=== PATIENT | male | born 1990 | race Caucasian/White ===

== ENCOUNTER 2018-07-03 09:10 | Outpatient (CLI) | payer OTHER ==
--- NOTE | 2018-07-03 09:25 | RAD ---
XR Lumbar Spine 2 Or 3 View History:Back pain Comparison: None Findings: The vertebral bodies are normal in height disc spaces alter relatively well-preserved. Dege nerative osteophytic changes are centered more at the thoracolumbar spine level. Pedicles are intact. No spondylolisthesis. Impression: Minimal arthritic changes spine changes are centered more at the thoracolumbar spine lisa lang
== END 2018-07-03 09:11 | disposition home or self-care (01) ==
LOC: RAD-FRANK 09:10
PROVIDERS: ATTEND Nurse Practitioner Family
DX: M54.5 Low back pain (principal); M46.95 Unspecified inflammatory spondylopathy, thoracolumbar region
CPT/HCPCS: 72100